=== PATIENT | male | born 1945 | race Caucasian/White ===

== ENCOUNTER 2016-12-07 09:55 | Outpatient (CLI) | payer MEDICARE, OTHER | END 2016-12-07 09:56 | disposition home or self-care (01) | LOC: SC 09:55 | PROVIDERS: ATTEND Nurse Practitioner Family | DX: G47.33 Obstructive sleep apnea (adult) (pediatric) (principal) | CPT/HCPCS: 99214; G0463; 99212 ==

== ENCOUNTER 2018-01-11 10:54 | Outpatient (CLI) | payer MEDICARE, OTHER | END 2018-01-11 10:55 | disposition home or self-care (01) | LOC: SC 10:54 | PROVIDERS: ATTEND Nurse Practitioner Family | DX: G47.33 Obstructive sleep apnea (adult) (pediatric) (principal); F51.5 Nightmare disorder | CPT/HCPCS: 99214; G0463; 99212 ==

== ENCOUNTER 2018-10-15 | Outpatient (CLI) | payer MEDICARE, OTHER | END 2018-10-15 08:20 | disposition home or self-care (01) | DX: G47.33 Obstructive sleep apnea (adult) (pediatric) (principal) | CPT/HCPCS: 99215; G0463; 99212 ==

== ENCOUNTER 2019-01-23 16:14 | Outpatient (CLI) | payer MEDICARE, OTHER ==
[2019-01-23 17:28] VITALS: BP 140/80
--- NOTE | 2019-01-23 17:28 | SLEEP CARE CONSULTATION ---
Information from patient questionnaire entered by Natalie Summers. I have reviewed and concur with the information entered by Natalie Summers. This document represents the service I personally performed and the decisions made by me, Ashely Nowak, RN, MSN, SALES ATTENDANT. History of Present Illness Previous diagnosis: Very Severe, Obstructive Sleep Apnea-Hypopnea Syndrome AHI: 78 Reason for follow up: first compliance Equipment type: CPAP Equipment obtained from: [facility] Mask style: Full face Mask brand: [employer] Backup mask available: Yes Last cushion change: a few weeks ago Prior sleep studies: Yes HPI additional information: Patient has been sleeping deeper with new mask - [employer] full face mask. His headaches was resolved with reduction of sugar. He has an appointment to see PCP re chronic nasal congestion. CPAP Compliance Data - Data Reviewed with Patient Average duration of nightly device use: 9H 17M Compliance rate %: 100 Current pressure setting (cmH2O): 8-10 Humidity settin Heated hose settin Average residual AHI: 0.1 Average large leak: 0 Subjective Patient concerns: reports: nasal congestion (chronic - will be followin up with PCP - randall Wong). denies: aerophagia, mask discomfort, air blowing in eyes, mask leak noise, condensation in mask/hose, dry mouth, nose, throat, epistaxis Observed to snore while using device: No Current pressure setting perceived as: comfortable On therapy, patient: reports: sleeping better, awakening more refreshed, being more awake and alert during the day, more rested overall. denies: drowsiness while driving Initial [place] Sleepiness Scale score: 4 Current [place] Sleepiness Scale score: 3 Allergies and Home Medications Known drug allergies: No Home medication list reviewed: Yes Allergy and home medication list: Medication Name (generic/name brand) Strength & Dosage Viagra (Slidenafil Citrate) 100mg tab - 1 one hour prior to activity Warfarin Sodium 7.5 mg tab as directed and Monday 15mg Dofetillide 250mcg cap one every 12 hours Sertraline HCI 50mg tab one daily Tamsulosin HCI 0.4mg cap one daily Irb`esartan 150mg tab one daily Review of Systems Review of systems same as previous: Yes Physical Exam Blood Pressure: 140/80 Cuff size: long Heart Rate: 66 O2 Saturation: 96 Height: 5 ft 9 in Weight: 260 lb Body Mass Index: 38.4 BMI Classification: Obesity Class 2 Impression and Plan 1. Obstructive Sleep Apnea-Hypopnea Syndrome, very severe, with good treatment compliance and good apnea control. On CPAP therapy, the patient has better sleep quality and is more rested overall. He feels his sleep is even deeper with his new mask and pressure change. Since he is planning on losing more weight, I will further adjust his pressure to 7-9cmH20 as his 90% average is 9.3cmH20 now residual is only 0.1. He is advised to contact me if the pressure change is uncomfortable. He was also advised to take a short rest break for about 30 minutes only to see if this will reduce evening fatigue he is feeling from his daily work outs. He continues to have lightheadedness 2-3 times a month especially with quick movement / position change. He has an appointment with Dr. Feng to address his chronic nasal congestion. Thus at that time I advised him also to f to discuss increased his lightheadedness and fatigue with workouts. He agreed with plan. Patient's apnea severity and rationale for treatment to reduce apnea, improve sleep quality and reduce cardiovascular and cerebrovascular events was reviewed. I also reviewed the benefit of consistent device use of CPAP for hypertension. arrhythmia, depression. * * Change CPAP pressure to 7-9 cmH2O * Notify me if snoring with mask or feeling that the pressure is too much or too little * Continue to lose weight * Schedule mid day rest with CPAP * Follow up with PCP for further evaluation of lighheadedness and increased fatigue. * Return for follow up in 1 year , or sooner if concerns arise I spent 100% of this 20 minute visit face to face with the patient with greater than 50% of this was spent time counseling the patient and coordination of care.
== END 2019-01-23 16:15 | disposition home or self-care (01) ==
LOC: SC 16:14
PROVIDERS: ATTEND Nurse Practitioner Family
DX: G47.33 Obstructive sleep apnea (adult) (pediatric) (principal); E66.9 Obesity, unspecified; Z68.38 Body mass index [BMI] 38.0-38.9, adult
CPT/HCPCS: 99213; G0463; 99212

== ENCOUNTER 2019-09-16 13:38 | Outpatient (CLI) | payer MEDICARE, OTHER | END 2019-09-16 13:39 | disposition home or self-care (01) | LOC: LAB 13:38 | PROVIDERS: ATTEND Ophthalmology | DX: Z01.812 Encounter for preprocedural laboratory examination (principal); H25.11 Age-related nuclear cataract, right eye; Z20.828 Contact with and (suspected) exposure to other viral communicable diseases | CPT/HCPCS: 81599 ==

== ENCOUNTER 2019-09-19 08:17 | Day surgery (SDC) | payer MEDICARE, OTHER ==
[~2019-09-19 08:17] MED LIST: KETOROLAC 0.45% OPHTH DROPS ONE; PROPARACAINE 0.5% OPHTH DROPS 15 ML ONE
[2019-09-19] MEDS ORDERED: MIDAZOLAM 2 MG/2 ML VIAL IVP ONE (08:18)
--- NOTE | 2019-09-19 08:52 | ANESTHESIA ---
Pre-Anesthesia VS, & Labs - Diagnosis R nuclear sclerotic cataract - Procedure R laser assisted extraction cataract w/IOL Height 5 ft 9 in Body Mass Index 38.4 - NPO >8 hours Home Medications and Allergies Home Medications: Ambulatory Orders Dofetilide [Tikosyn] 1 PO 09/18/19 Furosemide [Lasix] 09/18/19 Irbesartan [Avapro] 09/18/19 Sertraline [Zoloft] 09/18/19 Tamsulosin HCl [Flomax] 09/18/19 Warfarin Sodium [Coumadin] 09/18/19 Dofetilide [Tikosyn] 1 PO 09/18/19 Furosemide [Lasix] 09/18/19 Irbesartan [Avapro] 09/18/19 Sertraline [Zoloft] 09/18/19 Tamsulosin HCl [Flomax] 09/18/19 Warfarin Sodium [Coumadin] 09/18/19 Allergies/Adverse Reactions: Allergies Allergy/AdvReac Type Severity Reaction Status Date / Time No Known Drug Allergies Allergy Verified 09/18/19 13:08 Anes History & Medical History - Anesthetic History Anesthesia Complications: reports: No previous complications Family history of Anesthesia Complications: Denies Family history of Malignant Hyperthermia: Denies - Medical History Cardiovascular: reports: Atrial fibrillation (hx, SR today) Pulmonary: reports: COPD, CPAP use Gastrointestinal: reports: GERD Urinary: reports: None Musculoskeletal: reports: Osteoarthritis, Osteoporosis, Chronic back pain Endocrine/Autoimmune: reports: None Skin: reports: Rosacea, Other - Surgical History General: EGD Eyes Ears Nose Throat (EENT): Other Cardiothoracic: Pacemaker (demand <60) Exam General: Alert, Oriented x3, Cooperative Dental: Other (recently lost upper left molar, otherwise intact) Mouth Openin Fingerbreadth Neck Mobility: Normal Mallampati classification: II Thyromental Distance: greater than 6 cm Respiratory: Lungs clear, Normal breath sounds, No respiratory distress Cardiovascular: Regular rate Neurological: Normal speech Mental/Cognitive Status: Alert/Oriented X3, Normal for patient Cognitive Status: Within normal limits Plan Anesthesia Type: MAC Regional Block: Per Surgeon's request for Post Op pain control Consent for Procedure(s) Verified and Reviewed: Yes Code Status: Attempt Resuscitation ASA classification: 3-Severe systemic disease Is this case an emergency?: No
[2019-09-19] MEDS: CYCLOPENTOLATE 1% OPHTH DROPS 2 ML ONE ×3 (09:00→09:19)
[2019-09-19] MEDS: PHENYLEPHRINE 2.5% OPHTH 2 ML DROPS ONE ×3 (09:01→09:19)
[2019-09-19] MEDS ORDERED: LACTATED RINGERS 500 ML IV ONE (09:14)
[2019-09-19] MEDS ORDERED: BSS/LIDOCAINE/EPINEPHRINE 1 ML SYRINGE IO ONE (09:55)
[2019-09-19] MEDS ORDERED: TRIAMCIN/MOXIFLOX OPHTHALMIC 0.6 ML VIAL IO ONE ×2 (09:55→15:09)
[2019-09-19] MEDS ORDERED: BRIMONIDINE 0.2% OPHTH DROPS 5 ML OPTH ONE (09:55)
[2019-09-19] MEDS ORDERED: TIMOLOL 0.25% OPHTH DROPS RIGHTEYE ONE (09:55)
[2019-09-19] MEDS ORDERED: VANCOMYCIN OPHTHALMI 8MG/0.8ML 8 MG/0.8 ML SYRINGE IO ONE ×2 (09:55→15:09)
[2019-09-19] MEDS ORDERED: PROPARACAINE 0.5% OPHTH DROPS 15 ML RIGHTEYE ONE (09:55)
[2019-09-19] MEDS ORDERED: CHONDR SULF/HYALURONATE SYRINGE IO ONE (09:55)
[2019-09-19] MEDS ORDERED: EPINEPHrine 1 MG/ML AMP IR ONE (09:55)
[2019-09-19 11:12] VITALS: BP 128/73
[2019-09-19] MEDS ORDERED: BRIMONIDINE 0.2% OPHTH DROPS 5 ML ONE ×2 (11:41→15:09)
[2019-09-19] MEDS ORDERED: TRIAMCINOLONE PF 40 MG/ML VIAL ONE (11:42)
[2019-09-19] MEDS ORDERED: timoloL maleate 0.5% OPHTH DROPS (10ML) ONE ×2 (11:45→15:09)
--- NOTE | 2019-09-19 12:58 | OPERATIVE REPORT ---
DATE OF SERVICE: 09/19/2019 Physician: Nirav Santamaria MD PREOPERATIVE DIAGNOSIS: Visually significant cataract, right eye. This was his first cataract surge ry. POSTOPERATIVE DIAGNOSIS: Visually significant cataract, right eye. This was his first cataract surg kofi. PROCEDURE: Phacoemulsification with posterior chamber intraocular lens implant, right eye with laser assist. SURGEON: Nirav Santamaria MD ANESTHESIA: Monitored anesthesia care. COMPLICATIONS: None. OPERATIVE INDICATIONS: This is a 73-year-old man with progressive vision loss in the right eye due t o 4+ nuclear sclerotic cataract. Best corrected visual acuity was 20/25, with glare to hand motion v ision in the right eye. Indications for surgery are overall decrease in vision, difficulty seeing words on a computer screen, difficulty reading, difficulty seeing words, closed caption or game scores on TV, difficulty driving at night because of headlights from other vehicles, and difficulty with glare or bright lights in an y situation. He was consented at length concerning risks and benefits of cataract surgery, after he expressed a desire to proceed with surgery. OPERATIVE PROCEDURE: Patient was taken to OR #3 and placed under monitored anesthesia care. Surgica l timeout was conducted confirming correct patient, correct procedure, and correct surgical site. He was placed under the LenSx laser and his eye was docked to the laser interface the laser performed w ith the capsulotomy, lens softening, phaco wounds and arcuate keratotomy incisions. He was then move d to the operating microscope, given topical anesthesia, and prepped and draped in the usual sterile fashion. The eye was entered at the 12 and 9 o'clock positions. Intracameral Shugarcaine was inject ed into the anterior chamber, followed by Viscoat. Capsulorrhexis flap created by the LenSx laser wa s removed from the anterior chamber. The nucleus was hydrodissected and phacoemulsified. The cortex was evacuated using automated infusion and aspiration. Provisc was injected in the capsular bag, an d a 17.0 diopter intraocular lens inserted in the bag. Infusion and aspiration was used to evacuate the viscoelastic materials. The eye was inflated to physiologic pressure using balanced salt solutio n and found to be watertight. Approximately 0.25 mL of a mixture of triamcinolone and moxifloxacin w as injected transsclerally into the vitreous in the inferotemporal quadrant. An additional 0.55 mL o f a mixture of triamcinolone, moxifloxacin and vancomycin was injected subconjunctivally in the super ior quadrant for infection and inflammation prophylaxis. Wound integrity was checked with Weck-Neena s ponges. Patient was taken from the Operating Room in good condition and given postoperative instruct ions. TD: 09/19/2019 11:11
[2019-09-19] MEDS ORDERED: BSS/LIDOCAINE/EPINEPHRINE 1 ML SYRINGE ONE (15:09)
== END 2019-09-19 08:18 | disposition home or self-care (01) ==
LOC: SDS 08:17
PROVIDERS: ATTEND Ophthalmology
DX: H25.11 Age-related nuclear cataract, right eye (principal); G47.33 Obstructive sleep apnea (adult) (pediatric); N40.0 Benign prostatic hyperplasia without lower urinary tract symptoms; I10 Essential (primary) hypertension; I48.91 Unspecified atrial fibrillation; J44.9 Chronic obstructive pulmonary disease, unspecified; Z79.899 Other long term (current) drug therapy; Z87.891 Personal history of nicotine dependence
CPT/HCPCS: 66984; A9270; J3490; V2632

== ENCOUNTER 2020-07-14 07:47 | Outpatient (CLI) | payer MEDICARE, OTHER ==
--- NOTE | 2020-07-14 08:17 | SLEEP CARE CONSULTATION ---
Information from patient questionnaire entered by Pamela Paris. I have reviewed and concur with the information entered by Pamela Paris. This document represents the service I personally performed and the decisions made by , Julia Marc ARNP. History of Present Illness Service Date and Time: 07/14/2020 0747 Previous diagnosis: Very Severe, Obstructive Sleep Apnea-Hypopnea Syndrome AHI: 78 (in 2007) Reason for follow up: annual (last seen 01/2019) Equipment type: CPAP Equipment obtained from: [facility] (getting supplies as needed) Mask style: Full face Backup mask available: Yes (old mask) Last cushion change: 2 weeks ago Prior sleep studies: Yes Year and Where: [address] [place] [address] Sleep Type of Sleep Study: Polysomnography HPI additional information: MICHELINE HORN was diagnosed to have very severe, AHI 78, obstructive sleep apnea-hypopnea syndrome and returned today for CPAP therapy annual follow-up. CPAP Compliance Data - Data Reviewed with Patient Average duration of nightly device use: 9 hr 33 min Compliance rate %: 99.4 (180 days) Current pressure setting (cmH2O): 7-9 Humidity settin Heated hose settin Average residual AHI: 0.6 Average large leak: 0 Subjective Patient concerns: reports: mask leak noise, dry mouth, nose, throat (humidity setting 3, should increase to 4). denies: aerophagia, mask discomfort, air blowing in eyes, condensation in mask/hose, nasal congestion, epistaxis, other Observed to snore while using device: No Current pressure setting perceived as: too low (feels like he needs more this last year) On therapy, patient: reports: sleeping better, awakening more refreshed, being more awake and alert during the day, more rested overall. denies: drowsiness while driving Initial [place] Sleepiness Scale score: 4 (in 2013) Current [place] Sleepiness Scale score: 3 Allergies and Home Medications Drug allergies reviewed: Yes (NKDA) Home medication list reviewed: Yes Allergy and home medication list: Baby aspirin Plavix Metroprolol Spiriva Nitro, as needed Review of Systems Review of systems same as previous: No (3 heart stents placed 06/23, 1 next month 07/23 (Angioplasty)) Physical Exam Heart Rate: 65 O2 Saturation: 93 Height: 5 ft 9 in Weight: 266 lb Weight change since last visit: 6 lb gain Body Mass Index: 39.2 BMI Classification: Obese Impression and Plan 1. Obstructive Sleep Apnea-Hypopnea Syndrome, very severe, with excellent treatment compliance and excellent apnea control. On CPAP therapy, the patient has better sleep quality and is more rested overall. Micheline has felt there pressure has been a little low with some air hunger at the beginning of the night. The patients pressure will be changed to autoCPAP 8-11 cmH20 for air hunger. Patient advised to contact me if pressure change is uncomfortable so that it can be adjusted. Goals for apnea control discussed. He has also had some mouth dryness lately. His humidity is set at 3 with heated hose at 3. I advised him to increase his humidity to 4 and this should help resolved oral dryness. Patient's apnea severity and rationale for treatment to reduce apnea, improve sleep quality and reduce cardiovascular and cerebrovascular events was reviewed. I also reviewed the benefit of consistent device use of CPAP for hypertension, arrhythmia, and depression. * Change auto CPAP pressure to 8-11 cmH2O * Notify me if snoring with mask or feeling that the pressure is too much or too little * Attempt to lose weight * Call this office if any problems using CPAP * Return for follow up in 1-2 months, or sooner if concerns arise Counseling Topics: Spare mask, Weight loss health impact Visit Type: In Office Time Spent with Patient (minutes): 21 Provider Statement: I spent 100% of the Face to Face Visit with the patient with greater than 50% spent counseling the patient and coordination of care.
== END 2020-07-14 07:48 | disposition home or self-care (01) ==
LOC: SC 07:47
PROVIDERS: ATTEND Nurse Practitioner Family
DX: G47.33 Obstructive sleep apnea (adult) (pediatric) (principal); E66.9 Obesity, unspecified; Z68.39 Body mass index [BMI] 39.0-39.9, adult
CPT/HCPCS: 99213; G0463; 99212

== ENCOUNTER 2020-08-13 07:50 | Outpatient (CLI) | payer MEDICARE, OTHER ==
--- NOTE | 2020-08-13 08:14 | SLEEP CARE CONSULTATION ---
Information from patient questionnaire entered by Pamela Paris. I have reviewed and concur with the information entered by Pamela Paris. This document represents the service I personally performed and the decisions made by , Julia Marc ARNP. History of Present Illness Service Date and Time: 08/13/2020 0750 Previous diagnosis: Very Severe, Obstructive Sleep Apnea-Hypopnea Syndrome AHI: 78 (in 2007) Reason for follow up: one month (with pressure change) Equipment type: CPAP Equipment obtained from: [facility] (getting supplies as needed) Mask style: Full face Backup mask available: Yes (old mask) Last cushion change: 1 month Prior sleep studies: Yes Year and Where: [address] [place] [address] Sleep Type of Sleep Study: Polysomnography HPI additional information: MICHELINE HORN was diagnosed to have very severe, AHI 78, obstructive sleep apnea-hypopnea syndrome and returned today for CPAP therapy one month pressure change follow-up. CPAP Compliance Data - Data Reviewed with Patient Average duration of nightly device use: 9 hr 24 min Compliance rate %: 100 Current pressure setting (cmH2O): 8-11 Humidity settin Heated hose settin Average residual AHI: 0.2 Average large leak: 0 Subjective Patient concerns: denies: aerophagia, mask discomfort, air blowing in eyes, mask leak noise, condensation in mask/hose, nasal congestion, dry mouth, nose, throat, epistaxis, other Observed to snore while using device: No Current pressure setting perceived as: comfortable On therapy, patient: reports: sleeping better, awakening more refreshed, being more awake and alert during the day, more rested overall. denies: drowsiness while driving Initial [place] Sleepiness Scale score: 4 (in 2012) Current [place] Sleepiness Scale score: 5 Allergies and Home Medications Home medication list reviewed: Yes Allergy and home medication list: Lipitor Plavix Metroprolol Succinate Imdur Review of Systems Review of systems same as previous: No (Heart ablation for atria fibrillation in a few weeks) Physical Exam Heart Rate: 61 O2 Saturation: 98 Height: 5 ft 9 in Weight: 259 lb Body Mass Index: 38.2 BMI Classification: Obese Impression and Plan 1. Obstructive Sleep Apnea-Hypopnea Syndrome, very severe, with excellent treatment compliance and excellent apnea control. On CPAP therapy, the patient has better sleep quality and is more rested overall. He states the increase in pressure is comfortable and really helpful with his extra need for air. He has some heart issues (atrial fibrillation) causing more shortness of breath and feels the increased pressure helps him sleep better. He is having an ablation sometime in the next month. He will call if the pressure becomes uncomfortable. Patient's apnea severity and rationale for treatment to reduce apnea, improve sleep quality and reduce cardiovascular and cerebrovascular events was reviewed. I also reviewed the benefit of consistent device use of CPAP for hypertension, arrhythmia, and depression. * Continue auto CPAP pressure at 8-11 cmH2O * Notify me if snoring with mask or feeling that the pressure is too much or too little * Attempt to lose weight * Call this office if any problems using CPAP * Return for follow up in 1 year, or sooner if concerns arise Counseling Topics: Spare mask, Weight loss health impact Visit Type: In Office Time Spent with Patient (minutes): 12 Provider Statement: I spent 100% of the Face to Face Visit with the patient with greater than 50% spent counseling the patient and coordination of care.
== END 2020-08-13 07:51 | disposition home or self-care (01) ==
LOC: SC 07:50
PROVIDERS: ATTEND Nurse Practitioner Family
DX: G47.33 Obstructive sleep apnea (adult) (pediatric) (principal); E66.9 Obesity, unspecified; Z68.38 Body mass index [BMI] 38.0-38.9, adult
CPT/HCPCS: 99212; G0463

== ENCOUNTER 2020-11-13 13:07 | Outpatient (CLI) | payer MEDICARE, OTHER ==
--- NOTE | 2020-11-13 14:40 | XRAY Report ---
PROCEDURE: Hip w/Pelvis 2-3V LT INDICATIONS: LEFT PELVIS/GLUTEAL PAIN TECHNIQUE: AP pelvis with lateral view(s) of the bilateral hip(s). COMPARISON: None. FINDINGS: Bones: No fractures or dislocations. Pelvic ring appears intact. No suspicious bony lesions. Mode rate to severe bilateral degenerative hip joint space narrowing. Periarticular osteophytes are presen t. No definitive erosions. Degenerative changes are present within the lower lumbar spine. Soft tissues: The visualized bowel gas pattern is normal. No suspicious soft tissue calcifications. IMPRESSION: 1. Arthritic changes within the lower lumbar spine and hips as above. Reviewed by: Marychuy Chen MD on 11/13/2020 2:39 PM PDT Approved by: Marychuy Chen MD on 11/13/2020 2:39 PM PDT Station ID: [id number]
== END 2020-11-13 13:08 | disposition home or self-care (01) ==
LOC: DI.N 13:07
PROVIDERS: ATTEND Physician Assistant
DX: M47.816 Spondylosis without myelopathy or radiculopathy, lumbar region (principal); M16.0 Bilateral primary osteoarthritis of hip

== ENCOUNTER 2022-05-21 11:43 | Outpatient (CLI) | payer MEDICARE, OTHER ==
--- NOTE | 2022-05-21 20:47 | XRAY Report ---
PROCEDURE: Wrist 3 View LT INDICATIONS: TENOSYNOVITIS LEFT WRIST TECHNIQUE: 3 views of the wrist were acquired. COMPARISON: None FINDINGS: Bones: No fractures or dislocations. No suspicious bony lesions. Soft tissues: No suspicious soft tissue calcifications. IMPRESSION: No acute abnormality of the left wrist. Reviewed by: Jarrell Jack on 05/21/2022 7:46 PM [facility] Approved by: Jarrell Jack on 05/21/2022 7:46 PM [facility] Station ID: [id number]
== END 2022-05-21 11:44 | disposition home or self-care (01) ==
LOC: DI 11:43
PROVIDERS: ATTEND Internal Medicine
DX: M65.832 Other synovitis and tenosynovitis, left forearm (principal)

== ENCOUNTER 2023-09-17 14:54 | Outpatient (CLI) | payer MEDICARE, OTHER ==
--- NOTE | 2023-09-17 21:09 | Ultrasound Report ---
PROCEDURE: Ankle Brachial Index INDICATIONS: Bluish Toes TECHNIQUE: Ankle-brachial indices were obtained bilaterally and recorded. COMPARISONS: None. FINDINGS: Right ankle brachial index (MYLES): 0.8 Left ankle brachial index (MYLES): 0.8 Triphasic waveforms are present. Healing potential: Ankle pressures >55 mm Hg in non-diabetics and >80 mm Hg in diabetics are likely to achieve primary h ealing of ischemic foot ulcers. Toe pressures >30 mm Hg are likely to achieve primary healing of ischemic foot ulcers, toe or transme tatarsal amputations. IMPRESSION: Mildly abnormal ankle brachial indices. Reviewed by: Jamir Mai MD on 09/17/2023 9:08 PM PDT Approved by: Jamir Mai MD on 09/17/2023 9:08 PM PDT Station ID: [id number]
== END 2023-09-17 14:55 | disposition home or self-care (01) ==
LOC: DI 14:54
PROVIDERS: ATTEND Physician Assistant
DX: R68.89 Other general symptoms and signs (principal)
CPT/HCPCS: 93922